=== PATIENT | female | born 1955 | race Caucasian/White ===

== ENCOUNTER → 2016-08-25 | Outpatient (CLI) | payer OTHER | LOC: FIMAGING 15:18 | DX: Z12.31 Encounter for screening mammogram for malignant neoplasm of breast (principal); Z85.3 Personal history of malignant neoplasm of breast | CPT/HCPCS: G0202-52 ==

== ENCOUNTER 2016-10-26 18:16 | Emergency (ER) | payer OTHER ==
[2016-10-26 18:19] VITALS: BP 157/92; PULSE 75; RESP 18; TEMP 98; O2SAT 96
--- NOTE | 2016-10-26 18:21 | EDPHY ---
H & P Time Seen by Provider: 10/26/16 18:17 HPI/ROS: This patient was walking briskly when she tripped on as irregularity in the concrete shortly prior to arrival falling and striking her right supraorbital rim against the ground. She was wearing sunglasses time she is uncertain if the laceration to her left eyebrow region was from the concrete or from her glasses. She reports only localized pain from the laceration without any other associated symptoms. ROS: Neuro: No headache. She was not dazed. No confusion. Musculoskeletal: No neck pain, back pain, extremity injuries from the fall. Integumentary: Only left supraorbital rim laceration without other lacerations abrasions per her report. GI: No nausea vomiting. 5 point ROS is otherwise negative Past Medical/Surgical History: History of Breast CA with Mastectomy and chemo - now CA-free Otherwise healthy Immunizations up-to-date. Social History: The patient is our emergency parts department manager Smoking Status: Never smoked Physical Exam: Physical Exam Vital signs are normal. General: No acute distress HEENT: Atraumatic except for a 2 cm full-thickness laceration to the left supraorbital rim just lateral to the eyebrow with minimal bleeding. The wound is full-thickness through the skin but the orbicularis konrad muscles intact. There is no contamination appreciated and mild bleeding present. There is no underlying bony step-off, hematoma or significant tenderness. Eyes: Pupils equal and react to light. Extraocular motions are intact. No hyphema. Neck: Nontender Lungs: No respiratory distress. Cardiac: Brisk capillary refill is intact throughout. Extremities: Atraumatic normal Skin: No rash or pallor. Neuro: GCS 15 cranial nerves 2-12 grossly intact Constitutional: Initial Vital Signs Temperature (C) 36.6 C 10/26/16 18:17 Heart Rate 75 10/26/16 18:17 Respiratory Rate 18 10/26/16 18:17 Blood Pressure 157/92 H 10/26/16 18:17 O2 Sat (%) 96 10/26/16 18:17 O2 Delivery Mode Room Air Allergies/Adverse Reactions: No Known Allergies Allergy (Unverified 10/26/16 18:17) Home Medications: Medication Instructions Recorded NK [No Known Home Meds] 10/26/16 Medical Decision Making Procedures: After verbal consent, proceeded with wound closure. The wound is 2 [id number]. The wound was scrubbed by myself with baby shampoo and saline using gauze. The wound was explored for foreign bodies and none were found. I was able to visualize the base of the wound which is the on injured or particular source muscle. The wound was prepped and draped in the normal sterile fashion. The wound was anesthetized using let gel followed by a 50 50 mix of 0.5% Marcaine and 1% lidocaine-2 mm using a 27 gauge needle with good effect.. The edges were reapproximated using 5 0 Ethilon-7 running sutures and 1 interrupted suture with good hemostasis and cosmesis. The patient tolerated the procedure well. There were no complications. ED Course/Re-evaluation: Discussion: Facial laceration with no evidence of concussion clinically, neck injury, underlying bony injury or other complications. - Data Points Medications Given: Discontinued Medications Tetracaine/Epinephrine/Lidocaine (Let Gel Topical) 1 ea TP EDNOW ONE Stop: 10/26/16 18:24 Last Admin: 10/26/16 18:26 Dose: 1 ea Departure - Departure Disposition: Home, Routine, Self-Care Clinical Impression: Facial laceration Qualifiers: Encounter type: initial encounter Qualified Code(s): S01.81XA - Laceration without foreign body of other part of head, initial encounter Condition: Good Instructions: Facial Laceration (ED) Additional Instructions: Diagnosis: Facial laceration Plan: Keep the wound clean and dry for the next 2 days. Then clean it daily with warm soapy water Tylenol or ibuprofen for discomfort if needed Suture removal in 5-7 days Return sooner if he develops redness, discharge or other concerns for infection. Referrals: Daljit Moreau DO [Primary Care Provider] - As per Instructions
[2016-10-26] MEDS ORDERED: LET GEL TOPICAL 1 EA SYR TP ONE (18:23)
== END 2016-10-26 19:00 | disposition home or self-care (01) ==
LOC: CED 18:16
PROC: 0HQ1XZZ Repair Face Skin, External Approach (ICD-10-PCS; principal; 2016-10-26)
DX: S01.81XA Laceration without foreign body of other part of head, initial encounter (principal); Z85.3 Personal history of malignant neoplasm of breast; W01.198A Fall on same level from slipping, tripping and stumbling with subsequent striking against other object, initial encounter; Y93.01 Activity, walking, marching and hiking

== ENCOUNTER → 2017-07-30 | Outpatient (CLI) | payer OTHER | LOC: FIMAGING 09:42 | PROVIDERS: ATTEND Internal Medicine Hematology & Oncology | DX: Z13.820 Encounter for screening for osteoporosis (principal); M81.0 Age-related osteoporosis without current pathological fracture; C50.912 Malignant neoplasm of unspecified site of left female breast ==

== ENCOUNTER → 2017-08-26 | Outpatient (CLI) | payer OTHER | LOC: FIMAGING 07:52 | PROVIDERS: ATTEND Internal Medicine Hematology & Oncology | DX: Z12.31 Encounter for screening mammogram for malignant neoplasm of breast (principal); Z85.3 Personal history of malignant neoplasm of breast; Z90.12 Acquired absence of left breast and nipple ==

== ENCOUNTER → 2017-12-28 | Outpatient (CLI) | payer OTHER | LOC: FIMAGING 06:21 | PROVIDERS: ATTEND Internal Medicine Hematology & Oncology | DX: Z12.89 Encounter for screening for malignant neoplasm of other sites (principal); R91.8 Other nonspecific abnormal finding of lung field; C50.912 Malignant neoplasm of unspecified site of left female breast; C78.00 Secondary malignant neoplasm of unspecified lung ==

== ENCOUNTER → 2018-08-29 | Outpatient (CLI) | payer OTHER | LOC: FIMAGING 12:51 | PROVIDERS: ATTEND Internal Medicine Hematology & Oncology | DX: Z12.31 Encounter for screening mammogram for malignant neoplasm of breast (principal); Z85.3 Personal history of malignant neoplasm of breast ==